=== PATIENT | male | born 1945 | race Caucasian/White ===

== ENCOUNTER → 2017-01-03 | Outpatient (CLI) | payer MEDICARE ==
--- NOTE | 2017-01-03 15:38 | PCVCIMAG ---
APPROVED REPORT Indications Stenosis Risk Factors Hypertension: Doppler Spectral Velocity Analysis PSV / EDVPSV / EDV ECA (R) 99 / 13 cm/sECA (L) 135 / 17 cm/s dICA (R) 58 / 20 cm/sdICA (L) 43 / 12 cm/s Tobias (R) 101 / 38 cm/smICA (L) 86 / 33 cm/s pICA (R) 92 / 25 cm/spICA (L) 117 / 21 cm/s Bulb (R) 74 / 22 cm/sBulb (L) 116 / 27 cm/s dCCA (R) 78 / 22 cm/sdCCA (L) 104 / 24 cm/s mCCA (R) 99 / 27 cm/smCCA (L) 114 / 28 cm/s Vert (R) 56 / 16 cm/sVert (L) 54 / 15 cm/s ICA/CCA 1.29ICA/CCA 1.13 Basic Measurements Blood Pressure: Pulses: Right Left RightLeft Brachial(Sitting) 128/14erOx077/82mmHgTemporal Real Time B-Mode Imaging AreaRight Plaque DescriptionLeft Plaque Description VertebralAntegradeAntegrade Findings The right carotid bulb has moderate calcified plaque. The right proximal internal carotid artery shows <40% stenosis. The right common carotid artery shows no significant stenosis. The left carotid bulb has moderate calcified plaque. The left proximal internal carotid artery shows 40-50% stenosis. The left common carotid artery shows no significant stenosis. Conclusion 1. Right internal carotid artery stenosis (<40%) 2. Left internal carotid artery stenosis (40-50%) 3. Antegrade vertebral flow
== END | disposition home or self-care (01) ==
LOC: PCVCIMAG 13:34
PROVIDERS: ATTEND Internal Medicine
DX: I65.23 Occlusion and stenosis of bilateral carotid arteries (principal); I25.10 Atherosclerotic heart disease of native coronary artery without angina pectoris; E78.5 Hyperlipidemia, unspecified; I10 Essential (primary) hypertension; I25.5 Ischemic cardiomyopathy; I47.2 Ventricular tachycardia; J18.9 Pneumonia, unspecified organism; Z95.1 Presence of aortocoronary bypass graft; Z95.810 Presence of automatic (implantable) cardiac defibrillator; Z79.82 Long term (current) use of aspirin; Z79.899 Other long term (current) drug therapy
CPT/HCPCS: 80061; 93005; 93880; G0463

== ENCOUNTER → 2017-11-22 | Outpatient (CLI) | payer MEDICARE | END | disposition home or self-care (01) | LOC: PCVCCLINIC 13:37 | DX: I11.0 Hypertensive heart disease with heart failure (principal); I50.9 Heart failure, unspecified; I48.91 Unspecified atrial fibrillation; Z95.810 Presence of automatic (implantable) cardiac defibrillator; Z79.899 Other long term (current) drug therapy | CPT/HCPCS: 93283 ==

== ENCOUNTER → 2018-01-15 | Outpatient (CLI) | payer MEDICARE | END | disposition home or self-care (01) | LOC: PCVCIMAG 10:04 | DX: I65.23 Occlusion and stenosis of bilateral carotid arteries (principal); I25.10 Atherosclerotic heart disease of native coronary artery without angina pectoris; I25.5 Ischemic cardiomyopathy; I47.2 Ventricular tachycardia; I10 Essential (primary) hypertension; E78.5 Hyperlipidemia, unspecified; Z95.810 Presence of automatic (implantable) cardiac defibrillator; Z79.899 Other long term (current) drug therapy; Z86.74 Personal history of sudden cardiac arrest | CPT/HCPCS: 80061; 93005; 93880; G0463 ==

== ENCOUNTER → 2018-04-18 | Outpatient (CLI) | payer MEDICARE | END | disposition home or self-care (01) | LOC: PCVCCLINIC 10:33 | PROVIDERS: ATTEND Internal Medicine | DX: Z48.812 Encounter for surgical aftercare following surgery on the circulatory system (principal); Z95.810 Presence of automatic (implantable) cardiac defibrillator | CPT/HCPCS: 93283 ==

== ENCOUNTER → 2018-08-01 | Outpatient (CLI) | payer MEDICARE | END | disposition home or self-care (01) | LOC: PCVCCLINIC 14:58 | PROVIDERS: ATTEND Internal Medicine | DX: I25.5 Ischemic cardiomyopathy (principal); I25.10 Atherosclerotic heart disease of native coronary artery without angina pectoris; I47.2 Ventricular tachycardia; I10 Essential (primary) hypertension; I65.23 Occlusion and stenosis of bilateral carotid arteries; E78.5 Hyperlipidemia, unspecified; R63.4 Abnormal weight loss; Z86.74 Personal history of sudden cardiac arrest; Z95.810 Presence of automatic (implantable) cardiac defibrillator; Z79.82 Long term (current) use of aspirin; Z79.899 Other long term (current) drug therapy | CPT/HCPCS: 36415; 80061; 93005; G0463 ==

== ENCOUNTER → 2018-08-14 | Outpatient (CLI) | payer MEDICARE ==
[~2018-08-14] MED LIST: REGADENOSON 0.4 MG/5 ML DISP.SYRIN. IV ONE
--- NOTE | 2018-08-14 16:05 | PCVCIMAG ---
APPROVED REPORT Study performed: 08/14/2018 08:26:43 EXAM: Comprehensive 2D, Doppler, and color-flow Echocardiogram Patient Location: Echo lab Room #: 2Status: routine BSA: 1.85 Indications Pacemaker 2D Dimensions IVSd: 8.49 (7-11mm)LVOT Diam: 20.81 (18-24mm) LVDd: 50.14 mm PWd: 9.93 (7-11mm)Ascending Ao: 31.30 (22-36mm) LVDs: 43.33 (25-40mm) Left Atrium: 28.35 (27-40mm) Aortic Root: 27.61 mm LV Single Plane 4CH: 51.67 % LV Single Plane 2CH: 52.33 % Biplane EF: 51.9 % Volumes Left Atrial Volume (Systole) Single Plane 4CH: 49.76 mLSingle Plane 2CH: 49.88 mL Biplane LA Volume: 51.00 mLLA ESV Index: 28.00 mL/m2 Aortic Valve AoV Peak Jadon.: 2.20 m/s AO Peak Gr.: 19.79 mmHgLVOT Max P.10 mmHg AO Mean Gr.: 11.89 mmHg AO V2 Mean: 1.66 m/sLVOT Max V: 1.13 m/s AO V2 VTI: 48.29 cm JANI Vmax: 1.75 cm2 Mitral Valve E/A Ratio: 0.8 MV Decel. Time: 268.75 ms MV E Max Jadon.: 0.57 m/s MV A Jadon.: 0.76 m/s IVRT: 93.43 ms TDI E/Lateral E': 5.18E/Medial E': 14.25 Medial E' Jadon.: 0.04 m/s Lateral E' Jadon.: 0.11 m/s Pulmonary Valve PV Peak Jadon.: 0.97 m/sPV Peak Gr.: 3.79 mmHg Pulmonary Vein P Vein S: 0.63 m/sP Vein A: 0.65 m/s P Vein D: 0.34 m/sP Vein A Dur.: 100.3 msec P Vein S/D Ratio: 1.85 Tricuspid Valve TR Peak Jadon.: 2.43 m/s TR Peak Gr.: 23.65 mmHg TV Vmax: 0.61 m/sPA Pressure: 31.00 mmHg Left Ventricle The left ventricle is normal size. There is normal left ventricular wall thickness. Left ventricular systolic function is low normal. LVEF is 45-50%. Hypokinesis inferoseptum and base of inferior and inferolateral velez Grade I - abnormal relaxation pattern. Right Ventricle The right ventricle is normal size. The right ventricular systolic function is normal. Atria The left atrium size is normal. Pacemaker lead is present in the right atrium. Aortic Valve Aortic valve is trileaflet, mild-moderately calcified, mildly stenotic. No aortic regurgitation is present. Calculated aortic valve area is 1.7 cm2 with maximum pressure gradient of 20 mmHg and mean pressure gradient of 12 mmHg. Mitral Valve The mitral valve is normal in structure. There is no mitral valve regurgitation noted. No evidence of mitral valve stenosis. Tricuspid Valve The tricuspid valve is normal in structure. Mild tricuspid regurgitation with a PA pressure of 30 mmHg. Pulmonic Valve The pulmonary valve is normal in structure. There is no pulmonic valvular regurgitation. Great Vessels The aortic root is normal in size. The ascending aorta is normal in size. Aortic arch is normal in caliber. IVC is normal in size and collapses >50% with inspiration. Pericardium There is no pericardial effusion. There is no pleural effusion. <Conclusion> Normal echocardiogram. Left ventricular systolic function is low normal. LVEF is 45-50%. Hypokinesis inferoseptum and base of inferior and inferolateral velez Grade I - abnormal relaxation pattern. Aortic valve is trileaflet, mild-moderately calcified, mildly stenotic. No aortic insufficiency Calculated aortic valve area is 1.7 cm2 with maximum pressure gradient of 20 mmHg and mean pressure gradient of 12 mmHg. The mitral valve is normal in structure. No mitral valve regurgitation. Mild tricuspid regurgitation with a PA pressure of 30 mmHg. There is no pericardial effusion.
--- NOTE | 2018-08-21 15:20 | PCVCIMAG ---
APPROVED REPORT Imaging Protocol: Rest Tc-99m/Stress Tc-99m 1 day Study performed: 08/14/2018 09:18:27 Indication: CAD, ICM - [place] Patient Location: Out-Patient Stress Nurse: Ceci Paez RN, Darlin Gonzalez RN [place] Tech:Georgette Grazyna [facility] Ht: 6 ft 0 in Wt: 144 lbs BSA: 1.85 m2 HR: 74 bpm BP: 131/85 mmHg BMI: 19.5 Rhythm: Sinus Rhythm, PVC's Medical History Medical History: HTN, Hyperlipidemia, CVD, [place], Age, ICD Medications: Amiodarone, ASA, Lisinopril, Remeron, Paxil, Crestor, Aldactone, Coreg Allergies: No known drug allergies Previous Cardiac Procedures: CABG - 1998 Pretest Chest Pain Characteristics: No chest pain Exercise History: Physically active Meds Held (24 hrs): Carvedilol Hx Sudden Cardiac Arrest Resting Data Rest SPECT myocardial perfusion imaging was performed in supine position 45 minutes following the intravenous injection of 10 mCi of Tc-99m Sestamibi. Time of rest injection: 0930 Date: 08/14/2018 Administration Route: IV Administration Site: Right Hand Pharmacologic Stress Pharmacologic stress test was performed by injecting Regadenoson 0.4 mg IV push over 10-15 seconds immediately followed by the intravenous injection of 32.5 mCi of Tc-99m Sestamibi. Time of stress injection: 1040 Date: 08/14/2018 Administration Route: IV Administration Site: Right Hand Gated Stress SPECT was performed 45 minutes after stress injection. The images were gated to evaluate regional wall motion and calculate left ventricular ejection fraction. Stress Test Details Stress Test: Pharmacologic stress was paired with low level exercise. Reason for pharmacologic stress test: PPM/ICD. HRMax Heart Rate (APMHR): 146 bpm Resting HR: 74 bpmTarget HR (85% APMHR): 124 bpm Max HR Achieved: 87 bpm % of APMHR: 59 Recovery HR: 68 bpm BP Resting BP: 131/85 mmHg Max BP: 152/90 mmHg Recovery BP: 137/83 mmHg ECG Resting ECG: Sinus Rhythm, PVC, nonspecific intraventricular conduction delay Stress ECG: Sinus Rhythm, PVC's, nonspecific intraventricular conduction delay ST Change: None Maximum ST Deviation: 0 mm Arrhythmia: VPC Recovery ECG: Sinus Rhythm, PVC, nonspecific intraventricular conduction Recovery ST Change: Normal Recovery ST Deviation: 0 mm Recovery Arrhythmia: None Clinical Reason for Termination: Completed protocol Stress Symptoms: Dyspnea Exercise duration: 4 min 00 sec Exercise capacity: 1.6 METs Symptoms resolved with caffeine. Stress ECG Conclusion ECG: Non-ischemic Clinical: Non-ischemic Study Quality Study: Good Study Data Post stress, the left ventricular ejection was 60%.. SSS: 6 SRS: 5 SDS: 3 TID = 1.02. Perfusion No evidence of stress induced ischemia. 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 Nuclear Conclusion No evidence of stress induced ischemia. 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 Post stress, the left ventricular ejection was 60%. No prior study available for comparison. Interpreted by: Davion Joseph MD Electronically Approved: 08/14/2018 17:18:03 <Conclusion> ECG: Non-ischemic Clinical: Non-ischemic
== END | disposition home or self-care (01) ==
LOC: PCVCIMAG 08:19
PROVIDERS: ATTEND Internal Medicine
DX: I07.1 Rheumatic tricuspid insufficiency (principal); I25.10 Atherosclerotic heart disease of native coronary artery without angina pectoris; I10 Essential (primary) hypertension; I25.5 Ischemic cardiomyopathy; Z86.74 Personal history of sudden cardiac arrest; Z95.810 Presence of automatic (implantable) cardiac defibrillator
CPT/HCPCS: 78452; 93017; 93306; A9500; J2785